=== PATIENT | female | born 1995 | race Caucasian/White ===

== ENCOUNTER 2017-11-20 18:06 | Emergency (ER) | END 2017-11-20 18:37 | disposition home or self-care (01) ==

== ENCOUNTER 2018-09-02 20:12 | Emergency (ER) | END 2018-09-02 23:45 | disposition home or self-care (01) ==

== ENCOUNTER 2019-04-27 17:31 | Emergency (ER) | payer BC ==
[~2019-04-27] VITALS: Ht 165.1 cm; Wt 48.8 kg
[~2019-04-27 17:31] MED LIST: AMOX1TAB10 PO; CEPH-443 PO; CPR3OO3.5 LEFT EYE; IBUP-1561 PO; SULF1TAB31 PO
[2019-04-27 17:38] VITALS: BP 112/57; PULSE 67; RESP 16; Ht 165.1 cm; Wt 48.8 kg
--- NOTE | 2019-04-27 18:20 | ERD ---
ER Documentation Chief Complaint Chief Complaint q tip stuck in L ear w/ pain HPI 24-year-old female presents with some pain and bleeding her left ear after cleaning area with a Q-tip. The Q-tip was removed in its entirety. She denies any recent illnesses, cough, congestion. She denies any pain or symptoms prior to using a Q-tip today. She is worried as she is scheduled to fly an airplane tomorrow. ROS All systems reviewed and are negative except as per history of present illness. Medications Home Meds Active Scripts Amoxicillin/Potassium Clav (Amox-Clav 875-125 mg Tablet) 875-125 mg Tab, 1 TAB PO BID for 7 Days, #14 TAB Prov:VILMA SHANNON PA-C 09/02/18 Ibuprofen* (Motrin*) 400 Mg Tab, 400 MG PO Q6, #30 TAB Prov:MADELAINE RAGLAND PA-C 11/20/17 Sulfamethoxazole/Trimethoprim* (Bactrim Ds* Tablet) 1 Each Tablet, 1 TAB PO BID, #14 TAB Prov:MADELAINE RAGLAND PA-C 11/20/17 Cephalexin* (Keflex*) 500 Mg Capsule, 500 MG PO QID for 5 Days, #20 CAP Prov:MADELAINE RAGLAND PA-C 11/20/17 Ciprofloxacin Opht* (Ciloxan*) 0.3%-3.5 Opht Oint, 1 APPLIC LEFT EYE TID for 7 Days, #2 BOTTLE Prov:MADELAINE RAGLAND PA-C 11/20/17 Allergies Allergies: Coded Allergies: No Known Allergy (Unverified , 09/02/18) PMhx/Soc Medical and Surgical Hx: pt denies Medical Hx, pt denies Surgical Hx Hx Alcohol Use: No Hx Substance Use: No Hx Tobacco Use: No Smoking Status: Current some day smoker FmHx Family History: No diabetes, No coronary disease, No other Physical Exam Vitals Vital Signs Date Temp Pulse Resp B/P (MAP) Pulse Ox O2 O2 Flow FiO2 Time Delivery Rate 04/27/19 97.8 67 16 112/57 99 17:38 (75) Physical Exam Const: No acute distress Head: Atraumatic Eyes: Normal Conjunctiva ENT: Normal External Ears, Nose and Mouth. Left TM grossly normal. There is a apparent abrasion in the left external auditory canal with blood without active bleeding. No appreciable erythema. There is no mastoid tenderness or additional abnormal physical findings. Neck: Full range of motion. No meningismus. Resp: Clear to auscultation bilaterally Cardio: Regular rate and rhythm, no murmurs Abd: Soft, non tender, non distended. Normal bowel sounds Skin: No petechiae or rashes Back: No midline or flank tenderness Ext: No cyanosis, or edema Neur: Awake and alert Psych: Normal Mood and Affect Procedures/MDM Patient presents with what appears to be an abrasion in the left external auditory canal. The canal was cleansed with gauze and saline. TM appears grossly normal without appreciated perforation. There is no signs of infection, mastoiditis, cellulitis, additional complications. She will discharged home with reassurance, instructions to allow abrasions to heal, and avoid using Q- tips in her ears. She is given permission to fly an airplane as there is no apparent involvement of the middle ear. The patient was stable with no new complaints during the ER course. Clinically, there is no current evidence to suggest meningitis, sepsis, acute abdomen, pneumonia, stroke, acute coronary syndrome, pulmonary embolism, aortic dissection or any other emergent condition appearing to require further evaluation or hospitalization. Patient counseled regarding my diagnostic impression and care plan. Prior to discharge all questions answered. Pt agrees with treatment plan and understands strict return precautions. Pt is instructed to follow up with primary care provider within 24- 48 hours. Precautionary instructions provided including instructions to return to the ER if not improving or for any worsening or changing symptoms or concerns. Disclaimer: Inadvertent spelling and grammatical errors are likely due to EHR/dictation software use and do not reflect on the overall quality of patient care. Also, please note that the electronic time recorded on this note does not necessarily reflect the actual time of the patient encounter. Departure Diagnosis: Primary Impression: Abrasion Additional Impression: Left ear pain Condition: Stable Patient Instructions: Abrasion Additional Instructions: Recommend no Q-tips in ear. Wound should heal without treatment. Recheck for fevers, redness, pus, recurrent bleeding, new worsening symptoms. Okay to fly. REMI WEBER MD Apr 27, 2019 18:20
== END 2019-04-27 18:50 | disposition home or self-care (01) ==
LOC: FTE 17:31
DX: S00.412A Abrasion of left ear, initial encounter (principal); X58.XXXA Exposure to other specified factors, initial encounter; Y92.9 Unspecified place or not applicable
CPT/HCPCS: 99282